=== PATIENT | female | born 1985 | race American Indian/Alaskan Native ===

== ENCOUNTER 2019-04-28 15:25 | Emergency (ER) | payer SELFPAY ==
--- NOTE | 2019-04-28 15:49 | Emergency Department Report ---
{null, ED ENT HPI - General Chief complaint: Sore Throat Stated complaint: THROAT CLOSING UP Time Seen by Provider: 04/28/19 15:44 Source: patient Mode of arrival: Ambulatory Limitations: No Limitations - History of Present Illness Initial comments: This is a 33-year-old female nontoxic well in appearance with no signs of distress presents to the ED with complaint of sore throat. Patient denies any drooling or hoarseness. Patient denies any other symptoms. Denies any fever, chills, headache, nausea, vomiting, chest pain or SOB. Denies any other complai nts. MD complaint: sore throat -: days(s) Location: throat Severity: mild Severity scale (0 -10): 8 Quality: aching Consistency: constant Improves with: none Worsens with: swallowing Associated Symptoms: pain with swallowing, sore throat. denies: fever, cough, gum swelling, toothache, tinnitus, hearing loss, discharge from ear, rhinorrhea - Related Data Previous Rx's Medication Instructions Recorded Last Taken Type Amoxicillin/K Clav Tab [Augmentin 1 tab PO Q12HR #20 tab 04/28/19 Unknown Rx 875 mg] Ibuprofen [Motrin] 600 mg PO Q8H PRN #20 tablet 04/28/19 Unknown Rx Nystas/Diphen/Xyl Visc/Mylanta 15 ml MM Q4H PRN 10 Days ml 04/28/19 Unknown Rx [Magic Mouthwash] Allergies Allergy/AdvReac Type Severity Reaction Status Date / Time No Known Allergies Allergy Unverified 04/28/19 15:34 ED Dental HPI - General Chief complaint: Sore Throat Stated complaint: THROAT CLOSING UP Time Seen by Provider: 04/28/19 15:44 Source: patient Mode of arrival: Ambulatory Limitations: No Limitations - Related Data Previous Rx's Medication Instructions Recorded Last Taken Type Amoxicillin/K Clav Tab [Augmentin 1 tab PO Q12HR #20 tab 04/28/19 Unknown Rx 875 mg] Ibuprofen [Motrin] 600 mg PO Q8H PRN #20 tablet 04/28/19 Unknown Rx Nystas/Diphen/Xyl Visc/Mylanta 15 ml MM Q4H PRN 10 Days ml 04/28/19 Unknown Rx [Magic Mouthwash] Allergies Allergy/AdvReac Type Severity Reaction Status Date / Time No Known Allergies Allergy Unverified 04/28/19 15:34 ED Review of Systems ROS: Stated complaint: THROAT CLOSING UP Other details as noted in HPI Constitutional: denies: chills, fever Eyes: denies: eye pain, eye discharge, vision change ENT: throat pain. denies: ear pain Respiratory: denies: cough, shortness of breath, wheezing Cardiovascular: denies: chest pain, palpitations Endocrine: no symptoms reported Gastrointestinal: denies: abdominal pain, nausea, diarrhea Genitourinary: denies: urgency, dysuria, discharge Musculoskeletal: denies: back pain, joint swelling, arthralgia Skin: denies: rash, lesions Neurological: denies: headache, weakness, paresthesias Psychiatric: denies: anxiety, depression Hematological/Lymphatic: denies: easy bleeding, easy bruising ED Past Medical Hx - Past Medical History Previous Medical History?: No - Surgical History Past Surgical History?: No - Medications Home Medications: Home Medications Medication Instructions Recorded Confirmed Last Taken Type Amoxicillin/K Clav Tab [Augmentin 1 tab PO Q12HR #20 tab 04/28/19 Unknown Rx 875 mg] Ibuprofen [Motrin] 600 mg PO Q8H PRN #20 tablet 04/28/19 Unknown Rx Nystas/Diphen/Xyl Visc/Mylanta 15 ml MM Q4H PRN 10 Days ml 04/28/19 Unknown Rx [Magic Mouthwash] ED Physical Exam - General Limitations: No Limitations General appearance: alert, in no apparent distress - Head Head exam: Present: atraumatic, normocephalic - Expanded ENT Exam Expanded Ear exam: Present: normal external inspection Mouth exam: Present: normal external inspection. Absent: drooling, trismus, muffled voice Throat exam: Positive: tonsillar erythema, tonsillomegaly, tonsillar exudate, other (uvula midline. no tonsillar abscess). Negative: R peritonsillar mass, L peritonsillar mass - Neck Neck exam: Present: normal inspection, full ROM. Absent: tenderness, meningismus, lymphadenopathy - Extremities Exam Extremities exam: Present: full ROM - Back Exam Back exam: Present: normal inspection, full ROM. Absent: tenderness, CVA tenderness (R), CVA tenderness (L), muscle spasm, paraspinal tenderness, vertebral tenderness, rash noted - Neurological Exam Neurological exam: Present: alert, oriented X3, normal gait - Psychiatric Psychiatric exam: Present: normal affect, normal mood - Skin Skin exam: Present: warm, dry, intact, normal color. Absent: rash ED Course - Reevaluation(s) Reevaluation #1: 04/28/19 15:46 Patient is speaking in full sentences with no signs of distress noted. ED Medical Decision Making - Medical Decision Making Patient was instructed to Follow-up with a primary care doctor in 3-5 days or if symptoms worsen and continue return to emergency room as soon as possible. At time of discharge, the patient does not seem toxic or ill in appearance. No acute signs of distress noted. Patient agrees to discharge treatment plan of care. No further questions noted by the patient. Critical care attestation.: If time is entered above; I have spent that time in minutes in the direct care of this critically ill patient, excluding procedure time. ED Disposition Clinical Impression: Tonsillitis with exudate Disposition: TO HOME OR SELFCARE Is pt being admited?: No Does the pt Need Aspirin: No Condition: Stable Instructions: Tonsillitis (ED) Additional Instructions: Follow-up with a primary care doctor in 3-5 days or if symptoms worsen and continue return to emergency room as soon as possible. Prescriptions: Amoxicillin/K Clav Tab [Augmentin 875 mg] 1 tab PO Q12HR #20 tab Nystas/Diphen/Xyl Visc/Mylanta [Magic Mouthwash] 15 ml MM Q4H PRN 10 Days ml PRN Reason: Sore Throat Ibuprofen [Motrin] 600 mg PO Q8H PRN #20 tablet PRN Reason: Pain/Fever Referrals: ALICE SCHMIDT MD [Referring] - 3-5 Days BARON WATERS MD [Staff Physician] - 3-5 Days [facility] [Outside] - 3-5 Days Forms: Work/School Release Form(ED) }
[2019-04-28 15:50] VITALS: BP 144/84
== END 2019-04-28 17:32 | disposition home or self-care (01) ==
LOC: ED 15:25
DX: J03.90 Acute tonsillitis, unspecified (principal); Z79.899 Other long term (current) drug therapy
CPT/HCPCS: 99282

== ENCOUNTER 2021-10-29 19:27 | Emergency (ER) | payer SELFPAY ==
--- NOTE | 2021-10-29 20:39 | XRay Report ---
CHEST 2 VIEWS INDICATION / CLINICAL INFORMATION: COUGH. COMPARISON: None available. FINDINGS: SUPPORT DEVICES: None. HEART / MEDIASTINUM: No significant abnormality. LUNGS / PLEURA: No significant pulmonary or pleural abnormality. No pneumothorax. ADDITIONAL FINDINGS: No significant additional findings. IMPRESSION: 1. No acute findings. Signer Name: Truong Michele MD Signed: 10/29/2021 8:34 PM Workstation Name: [id number]
[2021-10-29] MEDS ORDERED: methylPREDNISolone Sod Succinate 125 MG/2 ML INJ IM ONE (21:48)
[2021-10-29] MEDS ORDERED: ALBUTEROL 2.5 MG/3 ML NEBU IH ONE (21:49)
[2021-10-29] MEDS ORDERED: IPRATROPIUM 0.02% NEBU 2.5 ML IH ONE (21:49)
--- NOTE | 2021-10-29 23:06 | Emergency Department Report ---
- General Chief Complaint: Upper Respiratory Infection Stated Complaint: SHORTNESS OF BREATH Source: patient Mode of arrival: Ambulatory Limitations: No Limitations - History of Present Illness Initial Comments: Patient is a 36-year-old -[place] female with no past medical history who presents to the ED with complaint of acute onset persistent nasal and sinus congestion, frontal sinus pressure, persistent cough with shortness of breath and wheezing for the last 5 days, despite taking [id number] medications. Patient states that in the last 2 days she has had intermittent fever with wors ening shortness of breath and wheezing. Patient denies dizziness, syncope, hemoptysis, chest pain, nausea and vomiting, abdominal pain, diarrhea, dysuria, urinary frequency and urgency, low back pain, or lightheadedness. MD Complaint: cough, rhinorrhea, nasal congestion, sinus pain -: days(s) (5) Severity: moderate Severity scale (0 -10): 4 Quality: dull, aching Consistency: constant Improves With: nothing Worsens With: nothing Associated Symptoms: denies other symptoms, fever, chills, headache, rhinorrhea, nasal congestion, sore throat, cough, shortness of breath. denies: myalgias, diaphoresis, chest pain, abdominal pain, nausea, vomiting, diarrhea, rash, confusion, right sweats, weight loss, epistaxis, hoarseness, ear pain Treatments Prior to Arrival: "cold medicine" - Related Data Previous Rx's Medication Instructions Recorded Last Taken Type Amoxicillin/K Clav Tab [Augmentin 1 tab PO Q12HR #20 tab 04/28/19 Unknown Rx 875 mg] Ibuprofen [Motrin] 600 mg PO Q8H PRN #20 tablet 04/28/19 Unknown Rx Nystas/Diphen/Xyl Visc/Mylanta 15 ml MM Q4H PRN 10 Days ml 04/28/19 Unknown Rx [Magic Mouthwash] Albuterol Sulfate [Proair 1 - 2 puff IH Q6H PRN #1 inh 10/29/21 Unknown Rx Respiclick] Azithromycin [Zithromax Z-JIMMY] 250 mg PO DAILY #6 tab 10/29/21 Unknown Rx Benzonatate [Tessalon Perles] 100 mg PO Q8HR #30 cap 10/29/21 Unknown Rx Cetirizine HCl [Zyrtec 10mg tab] 10 mg PO DAILY #30 tab 10/29/21 Unknown Rx Ibuprofen [Motrin] 600 mg PO Q8H PRN #30 tablet 10/29/21 Unknown Rx predniSONE [Deltasone] 40 mg PO QDAY #10 tab 10/29/21 Unknown Rx Allergies Allergy/AdvReac Type Severity Reaction Status Date / Time No Known Allergies Allergy Unverified 04/28/19 15:34 ED Review of Systems ROS: Stated complaint: SHORTNESS OF BREATH Other details as noted in HPI Constitutional: denies: chills, fever Eyes: denies: eye pain, eye discharge, vision change ENT: throat pain, congestion. denies: ear pain Respiratory: cough, shortness of breath, wheezing Cardiovascular: denies: chest pain, palpitations Endocrine: no symptoms reported Gastrointestinal: denies: abdominal pain, nausea, vomiting, diarrhea Genitourinary: denies: urgency, dysuria, discharge Musculoskeletal: denies: back pain, joint swelling, arthralgia Skin: denies: rash, lesions Neurological: headache. denies: weakness, paresthesias Psychiatric: denies: anxiety, depression Hematological/Lymphatic: denies: easy bleeding, easy bruising ED Past Medical Hx - Social History Smoking Status: Never Smoker Substance Use Type: None - Medications Home Medications: Home Medications Medication Instructions Recorded Confirmed Last Taken Type Amoxicillin/K Clav Tab [Augmentin 1 tab PO Q12HR #20 tab 04/28/19 Unknown Rx 875 mg] Ibuprofen [Motrin] 600 mg PO Q8H PRN #20 tablet 04/28/19 Unknown Rx Nystas/Diphen/Xyl Visc/Mylanta 15 ml MM Q4H PRN 10 Days ml 04/28/19 Unknown Rx [Magic Mouthwash] Albuterol Sulfate [Proair 1 - 2 puff IH Q6H PRN #1 inh 10/29/21 Unknown Rx Respiclick] Azithromycin [Zithromax Z-JIMMY] 250 mg PO DAILY #6 tab 10/29/21 Unknown Rx Benzonatate [Tessalon Perles] 100 mg PO Q8HR #30 cap 10/29/21 Unknown Rx Cetirizine HCl [Zyrtec 10mg tab] 10 mg PO DAILY #30 tab 10/29/21 Unknown Rx Ibuprofen [Motrin] 600 mg PO Q8H PRN #30 tablet 10/29/21 Unknown Rx predniSONE [Deltasone] 40 mg PO QDAY #10 tab 10/29/21 Unknown Rx ED Physical Exam - General Limitations: No Limitations General appearance: alert, in no apparent distress - Head Head exam: Present: atraumatic, normocephalic, normal inspection - Eye Eye exam: Present: normal appearance, PERRL, EOMI Pupils: Present: normal accommodation - ENT ENT exam: Present: normal orophraynx, mucous membranes moist, TM's normal bilaterally, normal external ear exam, other (Grossly congested nasal passages; palpable frontal sinus tenderness) - Neck Neck exam: Present: normal inspection, full ROM. Absent: tenderness - Respiratory Respiratory exam: Present: wheezes (Mildly diffuse coarse wheezes throughout). Absent: normal lung sounds bilaterally, respiratory distress, chest wall tenderness, accessory muscle use, decreased breath sounds, prolonged expiratory - Cardiovascular Cardiovascular Exam: Present: regular rate, normal rhythm, normal heart sounds. Absent: systolic murmur, diastolic murmur, rubs, gallop - GI/Abdominal GI/Abdominal exam: Present: soft, normal bowel sounds. Absent: tenderness, guarding, rebound, hyperactive bowel sounds, hypoactive bowel sounds, organomegaly, mass - Extremities Exam Extremities exam: Present: normal inspection, full ROM, normal capillary refill - Back Exam Back exam: Present: normal inspection, full ROM. Absent: tenderness, CVA tenderness (R), CVA tenderness (L), muscle spasm, paraspinal tenderness, vertebral tenderness - Neurological Exam Neurological exam: Present: alert, oriented X3, CN II-XII intact, normal gait, reflexes normal - Psychiatric Psychiatric exam: Present: normal affect, normal mood - Skin Skin exam: Present: warm, dry, intact, normal color. Absent: rash ED Course Vital Signs 10/29/21 19:27 Temperature 98.3 F Pulse Rate 99 H Respiratory 20 Rate Blood Pressure 144/92 [Right] O2 Sat by Pulse 98 Oximetry ED Medical Decision Making - Radiology Data Radiology results: report reviewed, image reviewed [facility] [address] [place] [address] XRay Report Signed Patient: MACO VALLADARES MR#: [id number] : 1985 Acct:[id number] Age/Sex: 36 / F ADM Date: 10/29/21 Loc: ED Attending Dr: Ordering Physician: ED DOC, Date of Service: 10/29/21 Procedure(s): XR chest routine 2V Accession Number(s): [id number] cc: ED DOC, Fluoro Time In Minutes: CHEST 2 VIEWS INDICATION / CLINICAL INFORMATION: COUGH. COMPARISON: None available. FINDINGS: SUPPORT DEVICES: None. HEART / MEDIASTINUM: No significant abnormality. LUNGS / PLEURA: No significant pulmonary or pleural abnormality. No pneumothorax. ADDITIONAL FINDINGS: No significant additional findings. IMPRESSION: 1. No acute findings. Signer Name: Truong Michele MD Signed: 10/29/2021 8:34 PM Workstation Name: [id number] Transcribed By: YANNI Dictated By: Truong Michele MD Electronically Authenticated By: Truong Michele MD Signed Date/Time: 10/29/212033 DD/ 33 TD/TT: Print Cancel - Medical Decision Making This is a 36-year-old -[place] female with no past medical history who presents to the ED with complaint of acute onset persistent nasal and sinus congestion, frontal sinus pressure, persistent cough with shortness of breath and wheezing for the last 5 days, despite taking [id number] medications. Patient states that in the last 2 days she has had intermittent fever with worsening shortness of breath and wheezing. In the ED, patient is alert and oriented x3 and is not in any distress. Patient is hemodynamically stable. Patient was treated in the ED with DuoNeb and Solu-Medrol 125 mg intramuscular injection. Chest x-ray showed no acute cardiopulmonary abnormalities or pneumonitis. On reevaluation, patient felt better, wheezing resolved and patient was discharged home on medications and advised to follow-up with her primary care physician in 5 to 7 days for reevaluation or return to the ED immediately if symptoms get worse. - Differential Diagnosis URI; bronchitis; sinusitis; pharyngitis; COVID-19; asthma; pneumonia; Critical care attestation.: If time is entered above; I have spent that time in minutes in the direct care of this critically ill patient, excluding procedure time. ED Disposition Clinical Impression: Acute upper respiratory infection Acute bronchitis Qualifiers: Bronchitis organism: other organism Qualified Code(s): J20.8 - Acute bronchitis due to other specified organisms Acute frontal sinusitis Qualifiers: Recurrence: non-recurrent Qualified Code(s): J01.10 - Acute frontal sinusitis, unspecified Disposition: 01 HOME / SELF CARE / HOMELESS Is pt being admited?: No Does the pt Need Aspirin: No Condition: Stable Instructions: Acute Bronchitis (ED), Sinusitis, Adult, [id number], Upper Respiratory Infection, Adult, [id number], Cough, Adult, [id number], Acute Bronchitis, Adult, [id number] Additional Instructions: The chest x-ray showed no acute cardiopulmonary abnormalities or pneumonitis. Therefore take medication with food, drink plenty of fluids, follow-up with your primary care physician in 7 to 10 days for reevaluation. Return to the ED immediately if symptoms get worse. Prescriptions: predniSONE [Deltasone] 40 mg PO QDAY #10 tab Ibuprofen [Motrin] 600 mg PO Q8H PRN #30 tablet PRN Reason: Pain Albuterol Sulfate [Proair Respiclick] 1 - 2 puff IH Q6H PRN #1 inh PRN Reason: Shortness Of Breath Benzonatate [Tessalon Perles] 100 mg PO Q8HR #30 cap Azithromycin [Zithromax Z-JIMMY] 250 mg PO DAILY #6 tab Cetirizine HCl [Zyrtec 10mg tab] 10 mg PO DAILY #30 tab Referrals: [facility] [Provider Group] - 7-10 days Forms: Work/School Release Form(ED) Time of Disposition: 23:08 Print Language: EGYPTIAN
[2021-10-30 00:39] VITALS: BP 138/91
== END 2021-10-30 00:38 | disposition home or self-care (01) ==
LOC: ED 19:27
DX: J06.9 Acute upper respiratory infection, unspecified (principal); J20.9 Acute bronchitis, unspecified; J01.10 Acute frontal sinusitis, unspecified
CPT/HCPCS: 71046; 94640; 96372; 99283; J2930